=== PATIENT | female | born 1975 | race American Indian/Alaskan Native ===

== ENCOUNTER 2016-11-12 22:27 | Emergency (ER) | payer OTHER ==
[2016-11-12 22:48] VITALS: BP 131/85
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
== END 2016-11-13 01:34 | disposition home or self-care (01) ==
LOC: ED 22:27
DX: M54.5 Low back pain (principal); F17.210 Nicotine dependence, cigarettes, uncomplicated; V49.9XXA Car occupant (driver) (passenger) injured in unspecified traffic accident, initial encounter; Y93.89 Activity, other specified; Y92.89 Other specified places as the place of occurrence of the external cause; Y99.8 Other external cause status
CPT/HCPCS: 99282

== ENCOUNTER 2016-12-22 21:16 | Emergency (ER) | payer OTHER ==
[2016-12-22] MEDS ORDERED: DUONEB *Not for PRN Use IH ONE (21:43)
[2016-12-22 23:05] LABS: Anion Gap 23 mmol/L; BUN/Creatinine Ratio 8.75; Blood Urea Nitrogen 7 mg/dL (7-17); Calcium 9.3 mg/dL (8.4-10.2); Carbon Dioxide 20 mmol/L (22-30); Chloride 103.7 mmol/L (98-107); Glucose 121 mg/dL (65-100); Potassium 4.2 mmol/L (3.6-5.0); Sodium 142 mmol/L (137-145)
--- NOTE | 2016-12-22 23:11 | XRay Report ---
FINAL REPORT EXAM: XR CHEST ROUTINE 2V HISTORY: Shortness of breath TECHNIQUE: Two view chest PA and lateral PRIORS: None. FINDINGS: Cardiac and mediastinal contours are unremarkable. No focal pulmonary infiltrate is identified. No pleural fluid collection seen. Pulmonary vasculature is unremarkable. IMPRESSION: Negative two-view chest
[2016-12-23] MEDS ORDERED: ATROVENT IH ONE
[2016-12-23] MEDS ORDERED: PROVENTIL IH ONE
[2016-12-23] MEDS ORDERED: DUONEB *Not for PRN Use IH ONE
--- NOTE | 2016-12-23 00:18 | Emergency Department Report ---
HPI - General Chief Complaint: Adult Asthma Time Seen by Provider: 12/22/16 23:58 - HPI HPI: Patient is a 41-year-old female with no prior medical history of present ED complaining of cough 2 days. Patient states his cough began yesterday she describes cough as intermittent throughout the day that is causing some chest discomfort every time she coughs. She states dry cough and sometimes white sputum. She denies fevers/chills/nausea/vomiting /abdominal pains has chest pain or shortness of breath ED Past Medical Hx - Past Medical History Previous Medical History?: Yes Additional medical history: BRONCHITIS - Surgical History Past Surgical History?: No - Social History Smoking Status: Never Smoker Substance Use Type: None - Medications Home Medications: Home Medications Medication Instructions Recorded Confirmed Last Taken Type Cyclobenzaprine [Flexeril] 10 mg PO QHS PRN #30 tablet 11/13/16 Unknown Rx Ibuprofen [Motrin] 800 mg PO Q8HR PRN #30 tablet 11/13/16 Unknown Rx ALBUTEROL Inhaler [ProAir HFA 2 puff IH QID PRN #1 pump 12/23/16 Unknown Rx Inhaler] Acetamin/Codeine 120-12Mg/5 ml 5 ml PO TID PRN #80 ml 12/23/16 Unknown Rx [Tylenol/Codeine] Benzonatate [Tessalon Perles] 100 mg PO Q8HR #21 capsule 12/23/16 Unknown Rx ED Review of Systems ROS: Stated complaint: ASTHMA Other details as noted in HPI Constitutional: denies: chills, fever Eyes: denies: eye pain, eye discharge, vision change ENT: denies: ear pain, throat pain, dental pain, hearing loss, congestion Respiratory: cough. denies: shortness of breath, wheezing Cardiovascular: denies: chest pain, palpitations Endocrine: no symptoms reported Gastrointestinal: denies: abdominal pain, nausea, diarrhea Genitourinary: denies: urgency, dysuria, discharge Musculoskeletal: denies: back pain, joint swelling, arthralgia Skin: denies: rash, lesions Neurological: denies: headache, weakness, paresthesias Psychiatric: denies: anxiety, depression Hematological/Lymphatic: denies: easy bleeding, easy bruising Physical Exam - Physical Exam Vital Signs: Vital Signs 12/22/16 22:00 Temperature 101.3 F H Pulse Rate 110 H Respiratory 20 Rate Blood Pressure 135/85 [Right] O2 Sat by Pulse 96 Oximetry Physical Exam: GENERAL: Alert and oriented x3, no apparent distress, Normal Gait, atraumatic. HEAD: Head is normocephalic and a-traumatic. EYES: Extra ocular muscles are intact. Pupils are equal, round, and reactive to light and accommodation. NOSE: Nose symetrical, Nontender,Nares appeared normal. MOUTH:Mouth is well hydrated and without lesions. Tonsils nonerythematous or swollen, Uvula midline, Tongue not elevated. Mucous membranes are moist. Posterior pharynx clear, no exudate or lesions. Patent airways. NECK: Supple. Non edematous, No carotid bruits. No lymphadenopathy or thyromegaly. No C-spine tenderness LUNGS: Symetrical with respiration, No wheezing, no rales or crackles, CTAB. No use of assessory muscles HEART: S1, S2 present, regular rate and rhythm without murmur, no rubs, no gallops. Non tender to palpation ABDOMEN: No organomegaly was noted,Positive bowel sounds, soft, and non- distended. . Nontender to palpation on all Quadrants, NO CVA tenderness. SKIN: Warm and dry, No lesions, No ulceration or induration present. ED Course Vital Signs 12/22/16 22:00 Temperature 101.3 F H Pulse Rate 110 H Respiratory 20 Rate Blood Pressure 135/85 [Right] O2 Sat by Pulse 96 Oximetry ED Medical Decision Making - Lab Data Result diagrams: 12/22/16 22:08 Laboratory Last Values VBG pH 7.402 (7.320-7.420) 12/22/16 22:08 Sodium 142 mmol/L (137-145) 12/22/16 22:08 Potassium 4.2 mmol/L (3.6-5.0) 12/22/16 22:08 Chloride 103.7 mmol/L (98-107) 12/22/16 22:08 Carbon Dioxide 20 mmol/L (22-30) L 12/22/16 22:08 Anion Gap 23 mmol/L 12/22/16 22:08 BUN 7 mg/dL (7-17) 12/22/16 22:08 Creatinine 0.8 mg/dL (0.7-1.2) 12/22/16 22:08 Estimated GFR > 60 ml/min 12/22/16 22:08 BUN/Creatinine Ratio 8.75 % 12/22/16 22:08 Glucose 121 mg/dL (65-100) H 12/22/16 22:08 Lactic Acid 1.00 mmol/L (0.7-2.0) 12/22/16 22:08 Calcium 9.3 mg/dL (8.4-10.2) 12/22/16 22:08 Magnesium 1.90 mg/dL (1.7-2.3) 12/22/16 22:08 Troponin T < 0.010 ng/mL (0.00-0.029) 12/22/16 22:08 HCG, Qual Negative (Negative) 12/22/16 22:08 - Radiology Data Radiology results: report reviewed, image reviewed FINAL REPORT EXAM: XR CHEST ROUTINE 2V HISTORY: Shortness of breath TECHNIQUE: Two view chest PA and lateral PRIORS: None. FINDINGS: Cardiac and mediastinal contours are unremarkable. No focal pulmonary infiltrate is identified. No pleural fluid collection seen. Pulmonary vasculature is unremarkable. IMPRESSION: Negative two-view chest Transcribed By: DEVANTE Dictated By: MAURO GILLETTE MD Electronically Authenticated By: MAURO GILLETTE MD Signed Date/Time: 12/22/16 2082 - Medical Decision Making 41-year-old female presents to bronchitis ED course: CBC, BMP, troponin, EKG, chest x-ray all ordered. All labs within normal limits. Discussed findings with patient. Patient received one breathing treatment , Solu-Medrol, Tylenol in ED. Patient feels much better after treatments. Fever was reduced prior to discharge. Discussed the patient will follow up with primary care physician, rest for the next year or so Discussed worsening symptoms to return to ED. vital signs are normalized patient is in no acute or respiratory distress Critical care attestation.: If time is entered above; I have spent that time in minutes in the direct care of this critically ill patient, excluding procedure time. ED Disposition Clinical Impression: Bronchitis Disposition: [id number] TO HOME OR SELFCARE Is pt being admited?: No Does the pt Need Aspirin: No Condition: Stable Instructions: Acute Bronchitis (ED), Chronic Bronchitis (ED) Additional Instructions: If symptoms worsen return to ED Particular medication as prescribed. Prescriptions: Acetamin/Codeine 120-12Mg/5 ml [Tylenol/Codeine] 5 ml PO TID PRN #80 ml PRN Reason: Pain ALBUTEROL Inhaler [ProAir HFA Inhaler] 2 puff IH QID PRN #1 pump PRN Reason: Shortness Of Breath Benzonatate [Tessalon Perles] 100 mg PO Q8HR #21 capsule Referrals: PRIMARY CARE, [Primary Care Provider] - 3-5 Days LELE ZUNIGA MD [Referring] - 3-5 Days [facility] [Outside] - 3-5 Days Forms: Accompanied Note, Work/School Release Form(ED)
[2016-12-23] MEDS ORDERED: TYLENOL PO ONE (00:26)
[2016-12-23 01:28] VITALS: BP 149/85
== END 2016-12-23 01:28 | disposition home or self-care (01) ==
LOC: ED 21:16
DX: J40 Bronchitis, not specified as acute or chronic (principal)
CPT/HCPCS: 36415; 71020; 80048; 82140; 82805; 83735; 84484; 84703; 87040; 93005; 93010; 94640; 96372; 99284; J2930